=== PATIENT | female | born 1995 | race Caucasian/White ===

== ENCOUNTER → 2017-06-05 | Outpatient (REF) | LOC: WSOH 10:45 | DX: Z02.89 Encounter for other administrative examinations (principal) ==

== ENCOUNTER → 2017-08-22 | Outpatient (REF) | LOC: WSOH 15:51 | DX: Z02.89 Encounter for other administrative examinations (principal) ==

== ENCOUNTER 2024-08-14 11:59 | Inpatient (IN) | payer OTHER ==
[~2024-08-14] VITALS: Ht 167.6 cm; Wt 75.0 kg
[2024-08-14] VITALS (11 sets, daily range): BP systolic 120–144; BP diastolic 58–89; PULSE 71–87; TEMP 98.2–99.1
[2024-08-14] MEDS ORDERED: LR 1,000 ML IV SCH (12:30)
[2024-08-14] MEDS ORDERED: Phenylephrine/Mineral Oil/Petrolatum 57 GM TUBE RC PRN (13:00)
[2024-08-14] MEDS ORDERED: Magnes Hydrox (MOM) 80 MG/ML 30 ML CUP PO PRN (13:00)
[2024-08-14] MEDS ORDERED: Witch Hazel 50% Pads Bulk TUB TP PRN (13:00)
[2024-08-14] MEDS ORDERED: oxyCODONE 5 MG TAB PO PRN (13:00)
[2024-08-14] MEDS ORDERED: Acetaminophen 500 MG TAB PO SCH (13:00)
[2024-08-14] MEDS ORDERED: Measles/Mumps/Rubella Virus Vaccine Live w Diluent 0.5 ML VIAL SQ SCH (13:00)
[2024-08-14] MEDS ORDERED: Ibuprofen 600 MG TAB PO SCH (13:00)
[2024-08-14] MEDS ORDERED: Loratadine 10 MG TAB PO PRN (13:00)
[2024-08-14] MEDS ORDERED: Naloxone 0.4 MG/ML VIAL IV PRN (13:00)
[2024-08-14] MEDS ORDERED: Mag/Al Hydrox/Simeth Susp 30 ML CUP PO PRN (13:00)
[2024-08-14] MEDS ORDERED: LR & Oxytocin 500 ML IV SCH (13:00)
[2024-08-14] MEDS ORDERED: Methylergonovine 0.2 MG/ML 1 ML AMPUL IM ONE (13:15)
--- NOTE | 2024-08-14 13:23 | NUR ---
Pt arrives to unit via wheelchair at 1210 with and adjunct political science instructor. Pt moaning through contractions and stops in hallway during. Pt to room, assisted into gown and onto bed. SVE with permission at 1214 by ERIC Davis, /+2, top of infant head visible. ERIC Chong of nursery called to bedside. Dr. Agrawal called and notified. VS taken, IV started in left wrist by Ryan. Pt continues breathing through contractions, RNs remain at bedside. Dr. Agrawal arrives at bedside at 1223. Viable male infant delivered via at 1225. Infant placed on mother's abdomen where dried and stimulated. Cord clamped by Dr. Agrawal and cut by father. Care of infant transferred to ERIC Chong of nursery. Placenta delivered spontaneously at 1239, pitocin started per protocol. Repair of superficial perineal laceration performed by Dr. Agrawal. Pericare provided, clean bed pad and ice pack placed. Pt repositioned for comfort. Fundal check at 1255 results in several moderate clots with free flow. Bed pat and ice pack changed, Dr. Agrawal on unit and notified of clots, flow, and QBL of 206. Orders for IM methergine recieved.
[2024-08-14 13:24] LABS: HEMOGLOBIN 12.6 g/dl (12.5-16.0); MEAN CELL VOLUME 89 fl (80.0-100.0); MEAN CORPUSCULAR HEMOGLOBIN 31 pg (27-31); MEAN CORPUSCULAR HGB CONC 35 g/dl (33.0-37.0); MEAN PLATELET VOLUME 13.8 fl (7.4-10.4); PLATELET COUNT 122 K/mm3 (130-400); RED BLOOD COUNT 4.07 M/mm3 (4.10-5.30); REDCELL DISTRIBUTION WIDTH-CV 12.3 % (11.5-14.5)
[2024-08-14 13:39] LABS: BAND 6 % (0-10); LYMPHOCYTE 4 % (20.0-51.0); NEUTROPHILS 90 % (42.0-75.2)
[2024-08-14 13:40] LABS: PLATELET ESTIMATE DECREASED (NORMAL)
[2024-08-14 13:41] LABS: ANISOCYTOSIS 1+
[2024-08-14] MEDS ORDERED: Sennosides/Docusate 8.6-50 MG TAB PO SCH (17:00)
[2024-08-14] MEDS ORDERED: MOTRIN 800800 MG/TAB PO (17:50)
[2024-08-14] MEDS ORDERED: traZODone 50 MG TAB PO PRN (21:00)
[2024-08-15 00:20] VITALS: BP 113/77; PULSE 101; TEMP 99
[2024-08-15 04:15] VITALS: BP 130/83; PULSE 76; TEMP 98.5
[2024-08-15 08:00] VITALS: BP 124/75; PULSE 88; TEMP 98.8
== END 2024-08-15 14:20 | disposition home or self-care (01) | DRG 807 ==
LOC: LDRO 11:59 → LDR 12:20 → OB 15:23
PROVIDERS: ADMIT Obstetrics & Gynecology
PROC: 10E0XZZ Delivery of Products of Conception, External Approach (ICD-10-PCS; principal; 2024-08-14)
PROC: 0HQ9XZZ Repair Perineum Skin, External Approach (ICD-10-PCS; 2024-08-14)
DX: O99.12 Other diseases of the blood and blood-forming organs and certain disorders involving the immune mechanism complicating childbirth (principal); Z37.0 Single live birth; Z3A.38 38 weeks gestation of pregnancy; D69.6 Thrombocytopenia, unspecified; O70.9 Perineal laceration during delivery, unspecified; O77.0 Labor and delivery complicated by meconium in amniotic fluid
CPT/HCPCS: J2210; J2590; J7120